=== PATIENT | male | born 1985 | race Caucasian/White ===

== ENCOUNTER 2021-09-28 16:12 | Emergency (ER) | payer SELFPAY ==
[2021-09-28] MEDS ORDERED: HYDROCODON-ACE1 EAC4 PO (17:02)
== END 2021-09-28 17:14 | disposition home or self-care (01) ==
LOC: ER1 16:12
DX: S42.021A Displaced fracture of shaft of right clavicle, initial encounter for closed fracture (principal); F17.200 Nicotine dependence, unspecified, uncomplicated; V86.96XA Unspecified occupant of dirt bike or motor/cross bike injured in nontraffic accident, initial encounter; Y92.009 Unspecified place in unspecified non-institutional (private) residence as the place of occurrence of the external cause
CPT/HCPCS: 73000; 73030; 99283

== ENCOUNTER 2021-12-07 13:54 | Emergency (ER) | payer OTHER ==
[~2021-12-07 13:54] MED LIST: HYDROCODON-ACE1 EAC4 PO; IBUPROFEN600 MG PO; TYLENOL325 MG PO
[2021-12-07] MEDS ORDERED: IBUPROFEN600 MG PO (17:35)
[2021-12-07] MEDS ORDERED: BACTROBAN OINT22 GM EXT (17:35)
== END 2021-12-07 17:42 | disposition home or self-care (01) ==
LOC: ER1 13:54
DX: S61.217A Laceration without foreign body of left little finger without damage to nail, initial encounter (principal); S60.415A Abrasion of left ring finger, initial encounter; F17.210 Nicotine dependence, cigarettes, uncomplicated; Z86.19 Personal history of other infectious and parasitic diseases; W04.XXXA Fall while being carried or supported by other persons, initial encounter; Z23 Encounter for immunization
CPT/HCPCS: 12001; 73130; 90471; 90715; 99283